=== PATIENT | male | born 1960 ===

== ENCOUNTER 2018-02-23 16:16 | Emergency (ER) | payer OTHER ==
[2018-02-23] MEDS ORDERED: cloNIDine HCl 0.1 MG TAB ONE (17:03)
--- NOTE | 2018-02-23 17:03 | ER ---
Nurse's Notes [facility] Name: Danial Guillen Age: 58 yrs Sex: Male : 1960 Arrival Date: 02/23/2018 Time: 16:21 Bed 18 Private MD: Diagnosis: Essential (primary) hypertension;Dental caries, unspecified Presentation: 02/23 16:33 Presenting complaint: Patient states: Left Side lower jaw pain, tooth pain that started sg two days ago, pt reports hx of having issues with that tooth but usually pain killers and waiting a couple of days it will go away. It is not going away and the pain is making my blood pressure very high. Transition of care: patient was not received from another setting of care. Onset of symptoms was February 23, 2018. Risk Assessment: Do you want to hurt yourself or someone else? Patient reports no desire to harm self or others. Initial Sepsis Screen: Does the patient meet any 2 criteria? No. Patient's initial sepsis screen is negative. Does the patient have a suspected source of infection? No. Patient's initial sepsis screen is negative. Care prior to arrival: None. 16:33 Method Of Arrival: Ambulatory sg 16:33 Acuity: GLORIA 3 sg Historical: - Allergies: 16:35 No Known Allergies; sg - Home Meds: 16:35 None [Active]; sg - PMHx: 16:35 None; sg - PSHx: 16:35 None; sg - Immunization history:: Adult Immunizations not up to date. - Social history:: Smoking status: Patient/guardian denies using tobacco. - Ebola Screening: : Patient negative for fever greater than or equal to 101.5 degrees Fahrenheit, and additional compatible Ebola Virus Disease symptoms Patient denies exposure to infectious person Patient denies travel to an Ebola-affected area in the 21 days before illness onset No symptoms or risks identified at this time. Screenin:43 Abuse screen: Denies threats or abuse. Nutritional screening: No deficits noted. em Tuberculosis screening: No symptoms or risk factors identified. Fall Risk None identified. Assessment: 16:48 General: Appears in no apparent distress. comfortable, Behavior is calm, cooperative. em Pain: Complains of pain in lower left third molar Pain currently is 5 out of 10 on a pain scale. Neuro: Level of Consciousness is awake, alert, obeys commands, Oriented to person, place, time, situation. Cardiovascular: Capillary refill < 3 seconds Patient's skin is warm and dry. Respiratory: Airway is patent Respiratory effort is even, unlabored, Respiratory pattern is regular, symmetrical. GI: Abdomen is flat. : No signs and/or symptoms were reported regarding the genitourinary system. EENT: Oral mucosa is moist. Derm: Skin is intact, Skin is pink, warm \T\ dry. Musculoskeletal: Range of motion: intact in all extremities. Vital Signs: 16:35 BP 170 / 120; Pulse 106; Resp 16 S; Temp 98.1(TE); Pulse Ox 98% on R/A; Weight 74 kg; sg Height 5 ft. 8 in. (172.72 cm) (R); Pain 7/10; 17:07 BP 164 / 116; Pulse 96; Resp 18; Pulse Ox 99% on R/A; Pain 5/10; em 17:31 BP 151 / 112; Pulse 92; Resp 15; Pulse Ox 98% on R/A; Pain 5/10; em 16:35 Body Mass Index 24.81 (74.00 kg, 172.72 cm) ED Course: 16:21 Patient arrived in ED. rg4 16:34 Triage completed. sg 16:35 Susana Whaley FNP-C [facility]. snw 16:35 Kevin Fong MD is Attending Physician. snw 16:35 Arm band placed on. sg 16:41 Jorge Luis Varghese LVN is Primary Nurse. em 16:43 Patient has correct armband on for positive identification. Bed in low position. Call em light in reach. 16:43 No provider procedures requiring assistance completed. em 17:10 Patient did not have IV access during this emergency room visit. em Administered Medications: 17:05 Drug: cloNIDine 0.2 mg Route: PO; em 17:26 Follow up: Response: Medication administered at discharge. em 17:05 Drug: Augmentin Chewable Tablet 400 mg Route: PO; em 17:26 Follow up: Response: Medication administered at discharge. em 17:05 Drug: Monument (7.5 mg-325 mg) 1 tabs Route: PO; em 17:26 Follow up: Response: Medication administered at discharge. em Outcome: 17:02 Discharge ordered by . snw 17:31 Discharged to home ambulatory. em 17:31 Condition: good 17:31 Discharge instructions given to patient, Instructed on discharge instructions, follow up and referral plans. medication usage, Demonstrated understanding of instructions, follow-up care, medications, Prescriptions given X 3. 17:32 Patient left the ED. em Signatures: Dami Christie, RN RN sg Susana Whaley, SPECIAL SERVICES DIRECTOR-C SPECIAL SERVICES DIRECTOR-Csnw Jorge Luis Varghese, HUMAN RESOURCES HR REPRESENTATIVE HUMAN RESOURCES HR REPRESENTATIVE em Colleen Fernández rg4 Corrections: (The following items were deleted from the chart) 16:39 16:35 BP 170 / 120; Pulse 106bpm; Resp 16bpm; Spontaneous; Pulse Ox 98% RA; Temp 98.1F sg Temporal; 74 kg; Height 6 ft. 1 in.; BMI: 21.5; Pain 7/10; sg
--- NOTE | 2018-02-23 17:03 | EDPHYS ---
Physician Documentation [facility] Name: Danial Guillen Age: 58 yrs Sex: Male : 1960 Arrival Date: 02/23/2018 Time: 16:21 Bed 18 Private MD: ED Physician Kevin Fong HPI: 02/23 17:22 This 58 yrs old Unknown Male presents to ER via Ambulatory with complaints of snw Toothache, High Blood Pressure. 17:22 The patient presents with pain, swelling. The problem is located in the lower left snw third molar (#17). Onset: The symptoms/episode began/occurred gradually, and became worse 3 day(s) ago. Duration: The symptoms are continuous. Associated signs and symptoms: Pertinent positives: swelling, mandibular. The patient has experienced similar episodes in the past. The patient has not recently seen a physician. 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 Historical: - Allergies: 16:35 No Known Allergies; sg - Home Meds: 16:35 None [Active]; sg - PMHx: 16:35 None; sg - PSHx: 16:35 None; sg - Immunization history:: Adult Immunizations not up to date. - Social history:: Smoking status: Patient/guardian denies using tobacco. - Ebola Screening: : Patient negative for fever greater than or equal to 101.5 degrees Fahrenheit, and additional compatible Ebola Virus Disease symptoms Patient denies exposure to infectious person Patient denies travel to an Ebola-affected area in the 21 days before illness onset No symptoms or risks identified at this time. ROS: 17:21 Constitutional: Negative for fever, chills, and weight loss, Eyes: Negative for injury, snw pain, redness, and discharge, Neck: Negative for injury, pain, and swelling, Cardiovascular: Negative for chest pain, palpitations, and edema, Respiratory: Negative for shortness of breath, cough, wheezing, and pleuritic chest pain, Abdomen/GI: Negative for abdominal pain, nausea, vomiting, diarrhea, and constipation, Back: Negative for injury and pain, : Negative for injury, bleeding, discharge, and swelling, MS/Extremity: Negative for injury and deformity, Skin: Negative for injury, rash, and discoloration, Neuro: Negative for headache, weakness, numbness, tingling, and seizure, Psych: Negative for depression, anxiety, suicide ideation, homicidal ideation, and hallucinations. 17:21 ENT: Positive for dental pain, of the lower left third molar (#17). Exam: 17:19 Constitutional: This is a well developed, well nourished patient who is awake, alert, snw and in no acute distress. Head/Face: Normocephalic, atraumatic. Eyes: Pupils equal round and reactive to light, extra-ocular motions intact. Lids and lashes normal. Conjunctiva and sclera are non-icteric and not injected. Cornea within normal limits. Periorbital areas with no swelling, redness, or edema. Neck: Trachea midline, no thyromegaly or masses palpated, and no cervical lymphadenopathy. Supple, full range of motion without nuchal rigidity, or vertebral point tenderness. No Meningismus. Chest/axilla: Normal chest wall appearance and motion. Nontender with no deformity. No lesions are appreciated. Cardiovascular: Regular rate and rhythm with a normal S1 and S2. No gallops, murmurs, or rubs. Normal PMI, no JVD. No pulse deficits. Respiratory: Lungs have equal breath sounds bilaterally, clear to auscultation and percussion. No rales, rhonchi or wheezes noted. No increased work of breathing, no retractions or nasal flaring. Abdomen/GI: Soft, non-tender, with normal bowel sounds. No distension or tympany. No guarding or rebound. No evidence of tenderness throughout. Back: No spinal tenderness. No costovertebral tenderness. Full range of motion. Skin: Warm, dry with normal turgor. Normal color with no rashes, no lesions, and no evidence of cellulitis. MS/ Extremity: Pulses equal, no cyanosis. Neurovascular intact. Full, normal range of motion. Neuro: Awake and alert, GCS 15, oriented to person, place, time, and situation. Cranial nerves II-XII grossly intact. Motor strength 5/5 in all extremities. Sensory grossly intact. Cerebellar exam normal. Normal gait. Psych: Awake, alert, with orientation to person, place and time. Behavior, mood, and affect are within normal limits. 17:19 ENT: External ear(s): are unremarkable, Ear canal(s): are normal, TM's: are normal, Nose: is normal, Mouth: Oral mucosa: normal, Gums: normal with healthy appearance, on the lower left third molar, Dental exam: pain, that is moderate, specifically in the lower left third molar (#17). Vital Signs: 16:35 BP 170 / 120; Pulse 106; Resp 16 S; Temp 98.1(TE); Pulse Ox 98% on R/A; Weight 74 kg; sg Height 5 ft. 8 in. (172.72 cm) (R); Pain 7/10; 17:07 BP 164 / 116; Pulse 96; Resp 18; Pulse Ox 99% on R/A; Pain 5/10; em 17:31 BP 151 / 112; Pulse 92; Resp 15; Pulse Ox 98% on R/A; Pain 5/10; em 16:35 Body Mass Index 24.81 (74.00 kg, 172.72 cm) sg MDM: 16:35 Patient medically screened. snw 17:21 Data reviewed: vital signs, nurses notes. Data interpreted: Pulse oximetry: on room air snw is 99 %. Interpretation: normal. Special discussion: I have referred the patient to see his PCP for further evaluation of high blood pressure. Based on the history and exam findings, there is no indication for further emergent testing or inpatient evaluation. I discussed with the patient/guardian the need to see a dentist for further evaluation of the symptoms. I discussed with the patient/guardian the need to see the primary care provider for further evaluation of the symptoms. Administered Medications: 17:05 Drug: cloNIDine 0.2 mg Route: PO; em 17:26 Follow up: Response: Medication administered at discharge. em 17:05 Drug: Augmentin Chewable Tablet 400 mg Route: PO; em 17:26 Follow up: Response: Medication administered at discharge. em 17:05 Drug: Lyle (7.5 mg-325 mg) 1 tabs Route: PO; em 17:26 Follow up: Response: Medication administered at discharge. em Disposition: 18 17:02 Discharged to Home. Impression: Essential (primary) hypertension, Dental caries, unspecified. - Condition is Stable. - Discharge Instructions: Dental Caries, Adult, Dental Pain, Hypertension, Diet and Dental Disease, DASH Eating Plan, Managing Your Hypertension. - Prescriptions for chlorhexidine gluconate 0.12 % Mucous Membrane mouthwash - place 15 milliliter by MUCOUS MEMBRANE route 2 times per day after brushing teeth, swish in mouth for 30 seconds then spit out; 480 milliliter. Augmentin 875- 125 mg Oral Tablet - take 1 tablet by ORAL route every 12 hours for 10 days; 20 tablet. Diclofenac Sodium 75 mg Oral Tablet Sustained Release - take 1 tablet by ORAL route 2 times per day; 30 tablet. - Medication Reconciliation Form, Thank You Letter, Antibiotic Education, Prescription Opioid Use form. - Follow up: Private Physician; When: Dentist as soon as possible; Reason: Continuance of care. Addendum: 02/25/2018 08:09 Co-signature as Attending Physician, Kevin Fong MD I agree with the assessment and w a plan of care. Signatures: Dami Christie, RN RN sg Susana Whaley, FEDER[place]-C PHOTOGRAPHY TEACHER-Csnw Jorge Luis Varghese, HEAD BANQUET WAITER/WAITRESS HEAD BANQUET WAITER/WAITRESS Ajit, MD CRISTINA Brown az Corrections: (The following items were deleted from the chart) 02/23 17:32 17:02 02/23/2018 17:02 Discharged to Home. Impression: Essential (primary) em hypertension; Dental caries, unspecified. Condition is Stable. Forms are Medication Reconciliation Form, Thank You Letter, Antibiotic Education, Prescription Opioid Use. Follow up: Private Physician; When: Dentist as soon as possible; Reason: Continuance of care. snw
[2018-02-23] MEDS ORDERED: HYDROCODONE/APAP 7.5/325 MG TAB ONE (17:04)
[2018-02-23] MEDS ORDERED: AMOX TR/K CLAV 400MG CHEW TAB PO ONE (17:04)
== END 2018-02-23 17:32 | disposition home or self-care (01) ==
LOC: ER 16:16
DX: K02.9 Dental caries, unspecified (principal); I10 Essential (primary) hypertension
CPT/HCPCS: 99283